=== PATIENT | male | born 1985 | race Caucasian/White ===

== ENCOUNTER 2025-09-17 19:53 | Emergency (ER) | payer OTHER ==
[2025-09-17] MEDS ORDERED: Lidocaine 1% (PF) 30 ML VIAL ONE (20:08)
[2025-09-17] MEDS ORDERED: HYDROcodone/Acetaminophen 10/325 mg Tablet ONE (20:38)
== END 2025-09-17 21:38 | disposition home or self-care (01) ==
LOC: MADERS 19:53
DX: S63.294A Dislocation of distal interphalangeal joint of right ring finger, initial encounter (principal); W19.XXXA Unspecified fall, initial encounter; Y93.67 Activity, basketball
CPT/HCPCS: 26770; J2003

== ENCOUNTER 2025-09-22 17:47 | Emergency (ER) | payer OTHER ==
[2025-09-22] MEDS ORDERED: Ibuprofen 800 MG TAB ONE (19:02)
== END 2025-09-22 20:00 | disposition home or self-care (01) ==
LOC: MADERS 17:47
DX: S62.604A Fracture of unspecified phalanx of right ring finger, initial encounter for closed fracture (principal); F17.220 Nicotine dependence, chewing tobacco, uncomplicated; W20.8XXA Other cause of strike by thrown, projected or falling object, initial encounter
CPT/HCPCS: 99283